=== PATIENT | female | born 1980 | race Two or more races ===

== ENCOUNTER 2018-10-23 06:25 | Emergency (ER) | payer OTHER ==
[~2018-10-23] VITALS: Ht 172.7 cm; Wt 95.3 kg
[2018-10-23] MEDS ORDERED: ALBUTEROL SULF 0.083% NEB SOLN 3 ML NEB NEB STA (06:46)
[2018-10-23] MEDS ORDERED: ALBUTEROL SULF 0.083% NEB SOLN 3 ML NEB ONE (06:50)
[2018-10-23] MEDS ORDERED: POTASSIUM CHLORIDE 20 MEQ TAB CR PO STA (07:15)
--- NOTE | 2018-10-23 07:15 | NUR ---
FHT'S LEFT UPPER QUAD @ [phone]
--- NOTE | 2018-10-23 08:15 | NUR ---
anaesthetic technician arrived.
--- NOTE | 2018-10-23 10:06 | Diagnostic Imaging Report ---
EXAM: Bilateral Lower Extremity Duplex Ultrasound INDICATION: Shortness of breath, history of , query DVT. COMPARISON: None TECHNIQUE: Norton scale, color Doppler and spectral waveform analysis of the bilateral lower extremities deep venous system was performed. FINDINGS: Right Lower Extremity: Common Femoral: Fully compressible with normal spontaneous waveforms. Proximal Greater Saphenous: Fully compressible. Femoral: Fully compressible with normal spontaneous waveforms. Normal response to augmentation. Popliteal: Fully compressible with normal spontaneous waveforms. Calf veins: Posterior tibial vein proximally is patent. Left Lower Extremity: Common Femoral: Fully compressible with normal spontaneous waveforms. Proximal Greater Saphenous: Fully compressible. Femoral: Fully compressible with normal spontaneous waveforms. Normal response to augmentation. Popliteal: Fully compressible with normal spontaneous waveforms. Calf veins: Posterior tibial vein proximally is patent. IMPRESSION: No evidence of bilateral lower extremity DVT. Signed by: Dr. Ji Lewis MD on 10/23/2018 10:02 AM
== END 2018-10-23 11:09 | disposition home or self-care (01) ==
LOC: FSED 06:25
DX: O26.893 Other specified pregnancy related conditions, third trimester (principal); R06.00 Dyspnea, unspecified; M79.89 Other specified soft tissue disorders; O24.419 Gestational diabetes mellitus in pregnancy, unspecified control; J45.909 Unspecified asthma, uncomplicated
CPT/HCPCS: 80048; 80076; 83880; 84484; 85025; 93005; 93970; 99284